=== PATIENT | female | born 1975 | race African-American/Black ===

== ENCOUNTER 2021-06-04 14:50 | Emergency (ER) | payer MEDICAID ==
[~2021-06-04] VITALS: Ht 175.3 cm; Wt 113.4 kg
[2021-06-04 15:41] LABS: BASOPHILS % (AUTO) 0.6 % (0.0-2.0); EOSINOPHILS % (AUTO) 1.8 % (0.0-6.0); HEMATOCRIT 40 % (33-45); HEMOGLOBIN 13.4 g/dL (11.5-14.8); LYMPHOCYTES # (AUTO) 1.6 K/uL (0.8-4.8); LYMPHOCYTES % (AUTO) 26.1 % (20.0-44.0); MEAN CORPUSCULAR HGB CONC 34 g/dl (31.0-36.0); MEAN CORPUSCULAR VOLUME 91 fL (82-100); MONOCYTES # (AUTO) 0.4 K/uL (0.1-1.30); MONOCYTES % (AUTO) 6.6 % (2.0-12.0); NEUTROPHILS % (AUTO) 64.9 % (43.0-81.0); PLATELET COUNT (AUTO) 345 K/uL (150-450); RED BLOOD CELL COUNT(AUTO) 4.38 MIL/uL (4.0-5.2); WHITE BLOOD COUNT (AUTO) 6.2 K/uL (4.3-11.0)
[2021-06-04 15:52] LABS: CALCIUM, SERUM 9.1 mg/dL (8.5-10.1); CARBON DIOXIDE 28 mmol/L (21-32); CHLORIDE 104 mmol/L (98-107); GLUCOSE 82 mg/dL (74-106); POTASSIUM 3.8 mmol/L (3.5-5.1); SODIUM SERUM 142 mmol/L (136-145); UREA NITROGEN, BLOOD 9 mg/dL (7-18)
[2021-06-04 16:06] LABS: ALANINE AMINOTRANSFERASE 27 U/L (12-78); ALBUMIN 3.4 g/dL (3.4-5.0); ALKALINE PHOSPHATASE 52 U/L (46-116); ASPARTATE AMINOTRANSFERASE 18 U/L (15-37); BILIRUBIN,TOTAL 0.9 mg/dL (0.2-1.0); TOTAL PROTEIN, SERUM 8.7 g/dL (6.4-8.2)
[2021-06-04 16:46] VITALS: BP 147/99
== END 2021-06-04 16:47 | disposition home or self-care (01) ==
LOC: ER 14:55
DX: R60.0 Localized edema (principal)
CPT/HCPCS: 36415; 71045-TC; 80053-TC; 83880; 84484-TC; 85025-TC; 93970-TC

== ENCOUNTER 2022-04-02 16:29 | Emergency (ER) | payer MEDICAID ==
[~2022-04-02] VITALS: Ht 175.3 cm; Wt 97.5 kg
[2022-04-02 17:20] VITALS: BP 165/80
== END 2022-04-02 18:26 | disposition home or self-care (01) ==
LOC: ER 16:32
DX: R42 Dizziness and giddiness (principal); R51.9 Headache, unspecified; R13.10 Dysphagia, unspecified